=== PATIENT | male | born 1935 | race Caucasian/White ===

== ENCOUNTER 2023-11-19 13:27 | Emergency (ER) | payer MEDICARE, OTHER ==
[~2023-11-19] VITALS: Ht 182.9 cm; Wt 77.6 kg
[2023-11-19] MEDS ORDERED: FAMO-108 (13:36)
[2023-11-19] MEDS ORDERED: DUTA0.5C37 PO (13:36)
[2023-11-19] MEDS ORDERED: [UNRECOGNIZED DRUG - CODE] PO (13:36)
[2023-11-19] MEDS ORDERED: LOSA25TA27 PO (13:36)
[2023-11-19] MEDS ORDERED: MIRA50TA PO (13:36)
[2023-11-19] MEDS ORDERED: ESCI20TA44 MT (13:36)
[2023-11-19] MEDS ORDERED: ATOR20TA (13:36)
[2023-11-19] MEDS ORDERED: SUVO20TA PO (13:36)
[2023-11-19] MEDS ORDERED: SOLI10TA7 PO (13:36)
[2023-11-19] MEDS ORDERED: CELE100C98 PO (13:36)
[2023-11-19] MEDS ORDERED: BACL10TA PO (13:36)
[2023-11-19] MEDS ORDERED: TRAM100C2 PO (13:36)
[2023-11-19] MEDS ORDERED: TDAP DIPH,PERTUSS,TET VAC/PF 0.5 ML DISP.SYRIN IM ONE (13:54)
[2023-11-19] MEDS: TDAP DIPH,PERTUSS,TET VAC/PF 0.5 ML DISP.SYRIN IM ONE (14:01)
[2023-11-19] MEDS ORDERED: NEOMY/BACITRAC/POLYMI OINT 28.35 GM TUBE ONE (15:21)
[2023-11-19] MEDS: NEOMY/BACITRA/POLYMYXIN B OINT UD PACKET TP ONE (15:45)
[2023-11-19 15:46] VITALS: BP 119/69; O2SAT 97
== END 2023-11-19 15:47 | disposition home or self-care (01) ==
LOC: ER 13:27
DX: S51.812A Laceration without foreign body of left forearm, initial encounter (principal); S51.811A Laceration without foreign body of right forearm, initial encounter; S80.01XA Contusion of right knee, initial encounter; S00.81XA Abrasion of other part of head, initial encounter; R51.9 Headache, unspecified; E78.5 Hyperlipidemia, unspecified; K21.9 Gastro-esophageal reflux disease without esophagitis; Z79.899 Other long term (current) drug therapy; W18.39XA Other fall on same level, initial encounter; Y93.89 Activity, other specified; Y92.89 Other specified places as the place of occurrence of the external cause; Y99.8 Other external cause status
CPT/HCPCS: 70450; 90715; A4606; A4663